=== PATIENT | male | born 1935 | race Caucasian/White ===

== ENCOUNTER 2016-10-06 11:27 | Emergency (ER) | payer MEDICARE, BC ==
[2016-10-06] MEDS ORDERED: Ondansetron 4 MG/2 ML SDV IVPUSH ONE (12:19)
[2016-10-06] MEDS ORDERED: methylPREDNISolone Sodium Succinate 125 MG/2 ML SDV IVPUSH ONE (12:19)
[2016-10-06] MEDS ORDERED: Sodium Chloride 0.9% 10 ML Syringe FLUSH PRN (12:20)
[2016-10-06] MEDS ORDERED: Sodium Chloride 0.9% 1,000 ML IV SCH (12:30)
[2016-10-06] MEDS ORDERED: Meclizine 12.5 MG Tab PO ONE (14:25)
--- NOTE | 2016-10-06 15:12 | EDM.PDOC ---
ED HPI GENERAL MEDICAL PROBLEM - General Chief Complaint: Neurological Problem Stated Complaint: VERTIGO/VOMITING Time Seen by Provider: 10/06/16 11:49 Source of Information: Reports: Patient, Family ( ) - History of Present Illness INITIAL COMMENTS - FREE TEXT/NARRATIVE: 81-year-old male comes in with severe vertigo type dizziness. This started about 2 hours ago. His states that he had been out open tractor in the heat making hay the last couple of days and then he also had an episode of diarrhea last night or early this morning. he states he felt okay this morning until vertigo hit him about 2 hours ago. he's had severe spinning vertigo type dizziness. Is worse with any type of walking or motion, better to lie still. Have an episode of severe vertigo about 4 years ago that eventually resolved over about 2 or 3 day time. No chest pain or difficulty breathing. No abdominal pain. He denies headache or any type of focal weakness - Related Data Allergies Allergy/AdvReac Type Severity Reaction Status Date / Time No Known Allergies Allergy Verified 05/16/15 09:49 Home Meds: Home Meds Ascorbic Acid [Vitamin C] 1,000 mg PO DAILY 05/17/15 [History] Folic Acid [Folic Acid] 1 tab PO DAILY 05/17/15 [History] Methotrexate Sodium [Methotrexate] 8 tab PO WEEKLY 05/17/15 [History] Multivitamin [One Daily Multivitamin] 1 tab PO DAILY 05/17/15 [History] Timolol Maleate [Timoptic 0.5% Ophth Soln] 5 ml EYEBOTH DAILY 05/17/15 [History] Cholecalciferol (Vitamin D3) [Vitamin D3] 1,000 unit PO DAILY 10/06/16 [History] Denosumab [Prolia] 60 mg INJECT Q6M 10/06/16 [History] Prednisone [IJD: Prednisone] 10 mg PO ASDIRECTED 10/06/16 [History] Past Medical History Other Respiratory History: Hx of wheezing with office visit Musculoskeletal History: Reports: RA Social & Family History - Tobacco Use Smoking Status *Q: Former Smoker Used Tobacco, but Quit: Yes Month Tobacco Last Used: 51 Second Hand Smoke Exposure: No - Caffeine Use Caffeine Use: Reports: Coffee - Recreational Drug Use Recreational Drug Use: No Drug Use in Last 12 Months: No ED ROS GENERAL - Review of Systems Review Of Systems: See Below Constitutional: Denies: Fever, Chills HEENT: Reports: Vertigo. Denies: Ear Pain, Eye Discharge, Sinus Problem, Throat Pain, Vision Change Respiratory: Denies: Shortness of Breath Cardiovascular: Denies: Chest Pain GI/Abdominal: Reports: Nausea, Vomiting. Denies: Abdominal Pain, Diarrhea Musculoskeletal: Denies: Neck Pain, Shoulder Pain Skin: Reports: No Symptoms Neurological: Reports: Dizziness. Denies: Numbness, Tingling, Trouble Speaking , Weakness, Change in Speech ED EXAM, DIZZINESS - Physical Exam Exam: See Below General Appearance: Alert, Mild Distress Eye Exam: Bilateral Eye: PERRL Ears: Normal External Exam, Normal Canal, Normal TMs Nose: Normal Inspection Throat/Mouth: Normal Inspection, Normal Oropharynx Head Exam: Atraumatic. No: Facial Swelling Vertigo: reproducible (Worse with motion, better to lie still) Neck: Supple Respiratory/Chest: No Respiratory Distress, Lungs Clear, Normal Breath Sounds Cardiovascular: Regular Rate, Rhythm GI/Abdominal: Soft, Non-Tender. No: Guarding Neurological: Alert, No Motor/Sensory Deficits Back Exam: Normal Inspection Skin Exam: Warm, Dry, Normal Color Course - Vital Signs Last Recorded V/S: Last Vital Signs Temp 97.1 F 10/06/16 12:00 Pulse 71 10/06/16 15:35 Resp 18 10/06/16 15:35 BP 131/81 10/06/16 15:35 Pulse Ox 94 L 10/06/16 15:35 - Orders/Labs/Meds Orders: Active Orders 24 hr Category Date Time Status Peripheral IV Care [RC] . DIRECTED Care 10/06/16 12:20 Active Peripheral IV Insertion Adult [OM.PC] Stat Oth 10/06/16 12:19 Ordered Labs: Laboratory Tests 10/06/16 10/06/16 Range/Units 13:20 13:20 WBC 10.64 H (4.23-9.07) K/mm3 RBC 5.05 (4.63-6.08) M/mm3 Hgb 15.3 (13.7-17.5) gm/L Hct 46.6 (40.1-51.0) % MCV 92.3 H (79.0-92.2) fl MCH 30.3 (25.7-32.2) pg MCHC 32.8 (32.2-35.5) g/dl RDW Std Deviation 49.6 H (35.1-43.9) fL Plt Count 172 (163-337) K/mm3 MPV 9.4 (9.4-12.3) fl Neut % (Auto) 78.8 H (34.0-67.9) % Lymph % (Auto) 11.8 L (21.8-53.1) % [place] % (Auto) 5.9 (5.3-12.2) % Eos % (Auto) 2.9 (0.8-7.0) Baso % (Auto) 0.3 (0.1-1.2) % Neut # (Auto) 8.38 H (1.78-5.38) K/mm3 Lymph # (Auto) 1.26 L (1.32-3.57) K/mm3 [place] # (Auto) 0.63 (0.30-0.82) K/mm3 Eos # (Auto) 0.31 (0.04-0.54) K/mm3 Baso # (Auto) 0.03 (0.01-0.08) K/mm3 Sodium 143 (136-145) mEq/L Potassium 4.2 (3.5-5.1) mEq/L Chloride 105 (98-107) mEq/L Carbon Dioxide 27 (21-32) mEq/L Anion Gap 15.2 H (5-15) BUN 21 H (7-18) mg/dL Creatinine 1.1 (0.7-1.3) mg/dL Est Cr Clr Drug Dosing 61.54 mL/min Estimated GFR (MDRD) > 60 (>60) mL/min BUN/Creatinine Ratio 19.1 H (14-18) Glucose 100 (83-115) mg/dL Calcium 9.5 (8.5-10.1) mg/dL Total Bilirubin 0.5 (0.2-1.0) mg/dL AST 27 (15-37) U/L ALT 25 (16-63) U/L Alkaline Phosphatase 41 L (46-116) U/L Total Protein 7.1 (6.4-8.2) g/dl Albumin 3.7 (3.4-5.0) g/dl Globulin 3.4 gm/dL Albumin/Globulin Ratio 1.1 (1-2) Meds: Medications Discontinued Medications Generic Name Dose Route Start Last Admin Trade Name Opal PRN Reason Stop Dose Admin Diazepam 2 mg 10/06/16 12:20 10/06/16 13:25 Valium IVPUSH 10/06/16 12:21 2 mg ONETIME ONE Administration Sodium Chloride 1,000 mls @ 999 mls/hr 10/06/16 12:30 10/06/16 13:22 Normal Saline IV 999 mls/hr ONETIME DAPHNE Administration Meclizine HCl 12.5 mg 10/06/16 14:25 10/06/16 14:39 Antivert PO 10/06/16 14:26 12.5 mg ONETIME ONE Administration Methylprednisolone Sodium Succinate 125 mg 10/06/16 12:19 10/06/16 13:24 Solu-Medrol IVPUSH 10/06/16 12:20 125 mg ONETIME ONE Administration Ondansetron HCl 4 mg 10/06/16 12:19 10/06/16 13:23 Zofran IVPUSH 10/06/16 12:20 4 mg ONETIME ONE Administration Sodium Chloride 10 ml 10/06/16 12:20 10/06/16 13:28 Saline Flush FLUSH 10 ml ASDIRECTED PRN Administration Keep Vein Open - Re-Assessments/Exams Free Text/Narrative Re-Assessment/Exam: 10/06/16 15:05. Patient has been resting, feels much better after some IV fluid , Zofran 4 mg IV, Solu-Medrol 125 mg IV, Valium 2 mg IV and also Antivert 4.5 mg by mouth. He now is able to tolerate careful movement. Discharge instructions as documented. Departure - Departure Time of Disposition: 15:12 Disposition: Home, Self-Care 01 Clinical Impression: Dehydration Labyrinthitis Qualifiers: Laterality: unspecified laterality Qualified Code(s): H83.09 - Labyrinthitis, unspecified ear - Discharge Information Instructions: Meclizine tablets or capsules, Labyrinthitis Referrals: PCP,None [Primary Care Provider] - Forms: ED Department Discharge Additional Instructions: Rest, moves slowly and carefully, continue Antivert or meclizine 12.5 mg, one half of a 25 mg tablet 2-3 times daily for 2 days or until after dizziness has completely resolved. Drink plenty of water to maintain hydration. Follow-up clinic if not getting back to normal within 2-3 days as expected. Return to ED if symptoms worsening in any way - My Orders Last 24 Hours: My Active Orders 10/06/16 12:19 Peripheral IV Insertion Adult [OM.PC] Stat 10/06/16 12:20 Peripheral IV Care [RC] . DIRECTED - Assessment/Plan Last 24 Hours: My Active Orders 10/06/16 12:19 Peripheral IV Insertion Adult [OM.PC] Stat 10/06/16 12:20 Peripheral IV Care [RC] . DIRECTED
[2016-10-06 15:51] VITALS: BP 131/81
== END 2016-10-06 15:35 | disposition home or self-care (01) ==
LOC: JD.ED 11:27
DX: E86.0 Dehydration (principal); H83.09 Labyrinthitis, unspecified ear; Z79.899 Other long term (current) drug therapy; Z87.891 Personal history of nicotine dependence
CPT/HCPCS: 36415; 80053; 85025; 96361; 96374; 96375; 99284; A9270; J2405; J2930; J3360; J7040; J7050

== ENCOUNTER 2018-12-29 14:10 | Emergency (ER) | payer MEDICARE, BC ==
[2018-12-29 14:22] VITALS: BP 139/72; PULSE 64
[2018-12-29] MEDS ORDERED: Lidocaine 1% 10 ML MDV INJECT ONE (14:29)
--- NOTE | 2018-12-29 16:06 | EDM.PDOC ---
ED HPI GENERAL MEDICAL PROBLEM - General Chief Complaint: Laceration Stated Complaint: L THUMB AND INDEX FINGER LAC Time Seen by Provider: 12/29/18 14:18 Source of Information: Reports: Patient History Limitations: Reports: No Limitations - History of Present Illness INITIAL COMMENTS - FREE TEXT/NARRATIVE: The patient presents with a left index and thumb laceration. He was working with a table saw and he went to shut it off and some how ran his fingers over the saw. He is right handed. His tetanus is up to date. He has 2 lacerations to the pad of the distal left thumb. He has a laceration with tissue missing to the left index finger. Onset: Sudden Duration: Minutes: Location: Reports: Upper Extremity, Left (index and thumb) Quality: Reports: Sharp Severity: Moderate Improves with: Reports: Immobilization Worsens with: Reports: Movement Context: Reports: Trauma (Table saw) Associated Symptoms: Reports: No Other Symptoms Left Hand Pain Score (Numeric/FACES): 7 - Related Data Allergies Allergy/AdvReac Type Severity Reaction Status Date / Time No Known Allergies Allergy Verified 12/29/18 14:22 Home Meds: Home Meds Ascorbic Acid [Vitamin C] 1,000 mg PO DAILY 05/17/15 [History] Folic Acid 1 tab PO DAILY 05/17/15 [History] Methotrexate Sodium [Methotrexate] 8 tab PO WEEKLY 05/17/15 [History] Multivitamin [One Daily Multivitamin] 1 tab PO DAILY 05/17/15 [History] Timolol Maleate [Timoptic 0.5% Ophth Soln] 5 ml EYEBOTH DAILY 05/17/15 [History] Cholecalciferol (Vitamin D3) [Vitamin D3] 1,000 unit PO DAILY 10/06/16 [History] Denosumab [Prolia] 60 mg INJECT Q6M 10/06/16 [History] Prednisone [IJD: Prednisone] 10 mg PO ASDIRECTED 10/06/16 [History] Gabapentin [Neurontin] 0 mg PO DAILY PRN 12/29/18 [History] Past Medical History HEENT History: Reports: Glaucoma, Hard of Hearing, Impaired Vision Other HEENT History: "pressure in the eyes." Cardiovascular History: Reports: None Respiratory History: Reports: None Other Respiratory History: Hx of wheezing with office visit Gastrointestinal History: Reports: GERD Genitourinary History: Reports: None Musculoskeletal History: Reports: Fracture, RA Other Musculoskeletal History: Delfin in left arm. Neurological History: Reports: Vertigo Psychiatric History: Reports: None Endocrine/Metabolic History: Reports: None Hematologic History: Reports: None Immunologic History: Reports: None Oncologic (Cancer) History: Reports: None Dermatologic History: Reports: None - Infectious Disease History Infectious Disease History: Reports: None - Past Surgical History Head Surgeries/Procedures: Reports: None Social & Family History - Tobacco Use Smoking Status *Q: Never Smoker - Caffeine Use Caffeine Use: Reports: Coffee - Recreational Drug Use Recreational Drug Use: No ED ROS GENERAL - Review of Systems Review Of Systems: See Below Constitutional: Reports: No Symptoms HEENT: Reports: No Symptoms Respiratory: Reports: No Symptoms Cardiovascular: Reports: No Symptoms Endocrine: Reports: No Symptoms GI/Abdominal: Reports: No Symptoms : Reports: No Symptoms Musculoskeletal: Reports: Other (Lacerations to the left thumb and index finger) ED EXAM, SKIN/RASH Exam: See Below Exam Limited By: No Limitations General Appearance: Alert, No Apparent Distress Ears: Normal External Exam Nose: Normal Inspection Head: Atraumatic, Normocephalic Neck: Normal Inspection Respiratory/Chest: No Respiratory Distress Extremities: Other (Two 1 cm laceration to the pad of the left thumb. The left index finger has a 1.5cm laceration with tissue missing.) ED SKIN PROCEDURES - Laceration/Wound Repair Left Digit - 1st (Thumb) Appearance: Subcutaneous, Linear Distal NVT: Neuro & Vascular Intact, No Tendon Injury Anesthetic Type: Local Local Anesthesia - Lidocaine (Xylocaine): 1% Plain Skin Prep: Saline Exploration/Debridement/Repair: Wound Explored, In a Bloodless Field, Explored to Base Closed with: Sutures Lac/Wound length In cm: 2 Suture Size: 4-0 # of Sutures: 5 Suture Type: Nylon, Interrupted, Simple Tetanus Status Addressed: Yes Complications: No Course - Vital Signs Last Recorded V/S: Last Vital Signs Temp 97.2 F 12/29/18 14:18 Pulse 64 12/29/18 14:18 Resp 16 12/29/18 14:18 BP 139/72 12/29/18 14:18 Pulse Ox 99 12/29/18 14:18 - Orders/Labs/Meds Orders: Active Orders 24 hr Category Date Time Status Hand 2V Lt [CR] Stat Exams 12/29/18 14:29 Taken Meds: Medications Discontinued Medications Generic Name Dose Route Start Last Admin Trade Name Opal PRN Reason Stop Dose Admin Lidocaine HCl 10 ml 12/29/18 14:29 12/29/18 15:12 Xylocaine 1% INJECT 12/29/18 14:30 10 ml ONETIME ONE Administration - Re-Assessments/Exams Free Text/Narrative Re-Assessment/Exam: 12/29/18 16:09 I ordered an x-ray and there is no fracture. Departure - Departure Time of Disposition: 16:15 Disposition: Home, Self-Care 01 Condition: Good Clinical Impression: Laceration - Discharge Information *PRESCRIPTION DRUG MONITORING PROGRAM REVIEWED*: No *COPY OF PRESCRIPTION DRUG MONITORING REPORT IN PATIENT KELSEY: No Referrals: Prosper Carpio Jr, MD [Primary Care Provider] - 1 Week Additional Instructions: Soak your finger in warm soapy water two times per day and apply antibiotics after. Have the sutures removed in a week. Look for any signs of infection such as redness, swelling, pain or swelling. If you see any of these signs, please return or see your doctor. You may need antibiotics. - My Orders Last 24 Hours: My Active Orders 12/29/18 14:29 Hand 2V Lt [CR] Stat - Assessment/Plan Last 24 Hours: My Active Orders 12/29/18 14:29 Hand 2V Lt [CR] Stat ED LACERATION/WOUND PROCEDURES - Laceration/Wound Repair Left Digit - 2nd (Index) Laceration/Wound Length In cm: 1.5 Appearance: Subcutaneous, Other (tissue missing) Distal NVT: Neuro & Vascular Intact, No Tendon Injury Anesthetic Type: Local Local Anesthesia - Lidocaine (Xylocaine): 1% Plain Local Anesthetic Volume: 2cc Skin Prep: Saline Wound Exploration, Debridement, Revision: Wound Explored, In a Bloodless Field, Explored to Base Suture Size: 4-0 # of Sutures: 1 Suture Type: Nylon, Interrupted, Simple Tetanus Status Addressed: Yes Complications: None
--- NOTE | 2018-12-30 07:06 | CR ---
Left hand: Two views of the left hand were obtained. Comparison: No previous study. Deformity of the ulnar styloid process is seen most likely representing change from old injury. Mild joint space narrowing is scattered within the DIP joints. No acute fracture or other abnormality is seen. Soft tissue injury is seen within the distal second finger. Impression: 1. No acute bony abnormality. 2. Soft tissue injury. Diagnostic code #3
== END 2018-12-29 16:20 | disposition home or self-care (01) ==
LOC: JD.ED 14:10
DX: S61.012A Laceration without foreign body of left thumb without damage to nail, initial encounter (principal); S61.211A Laceration without foreign body of left index finger without damage to nail, initial encounter
CPT/HCPCS: 12001; 73120; 99283; J2001; 12042; 99282

== ENCOUNTER 2021-10-27 11:43 | Emergency (ER) | payer MEDICARE, BC ==
[2021-10-27] MEDS ORDERED: Acetaminophen 325 MG Tab PO ONE (12:34)
[2021-10-27 14:16] VITALS: BP 114/70; PULSE 65
== END 2021-10-27 14:05 | disposition home or self-care (01) ==
LOC: JD.ED 11:43
DX: R07.81 Pleurodynia (principal); K21.9 Gastro-esophageal reflux disease without esophagitis
CPT/HCPCS: 71101; 99283; A9270

== ENCOUNTER 2022-01-18 16:41 | Emergency (ER) | payer MEDICARE, BC ==
[2022-01-18 18:18] VITALS: BP 99/65; PULSE 81
[2022-01-18] MEDS ORDERED: Sodium Chloride 0.9% 1,000 ML IV ONE (22:21)
[2022-01-18 22:30] LABS: CORONAVIRUS COVID-19 NAA NEGATIVE (NEGATIVE)
[2022-01-18] MEDS ORDERED: Iopamidol 755 Mg/ML 100 ML Bottle IVPUSH ONE (22:54)
[2022-01-19] MEDS ORDERED: Azithromycin 250 MG Tab PO STA (00:35)
== END 2022-01-19 01:15 | disposition home or self-care (01) ==
LOC: JD.ED 16:41
DX: E86.9 Volume depletion, unspecified (principal); R91.8 Other nonspecific abnormal finding of lung field; Z79.899 Other long term (current) drug therapy; Z88.1 Allergy status to other antibiotic agents; Z86.16 Personal history of COVID-19; Z87.891 Personal history of nicotine dependence; Z20.822 Contact with and (suspected) exposure to COVID-19
CPT/HCPCS: 0241U; 36415; 71046; 71275; 80053; 81001; 83605; 83735; 84443; 84484; 85025; 85379; 86140; 87040; 93005; 96360; 99285; A9270; J7030; Q9967

== ENCOUNTER 2022-06-03 11:55 | Emergency (ER) | payer MEDICARE, BC ==
[2022-06-03 12:12] VITALS: PULSE 69
[2022-06-03] MEDS ORDERED: Sodium Chloride 0.9% 10 ML Syringe FLUSH PRN (13:09)
[2022-06-03] MEDS ORDERED: HYDROmorphone 0.5 MG/0.5 ML Syringe IVPUSH ONE (17:31)
[2022-06-03 18:13] LABS: CORONAVIRUS COVID-19 NAA POSITIVE (NEGATIVE)
[2022-06-03 19:48] VITALS: BP 102/53
== END 2022-06-03 19:40 ==
LOC: JD.ED 11:55
DX: U07.1 COVID-19 (principal); R00.1 Bradycardia, unspecified; S00.81XA Abrasion of other part of head, initial encounter; Z88.1 Allergy status to other antibiotic agents; W18.30XA Fall on same level, unspecified, initial encounter
CPT/HCPCS: 0241U; 36415; 70450; 71045; 80053; 81001; 83735; 84484; 85025; 86140; 93005; 96374; 99285; J1170; J3490; 93010

== ENCOUNTER 2023-07-29 10:32 | Emergency (ER) | payer MEDICARE, BC ==
[2023-07-29] MEDS: Sodium Chloride 0.9% 10 ML Syringe FLUSH PRN (10:55)
[2023-07-29 12:01] LABS: BASOPHILS PERCENT AUTO 0.4 % (0.0-1.0); EOSINOPHILS PERCENT AUTO 0.2 % (0.0-6.0); HEMATOCRIT 45.9 % (42.0-52.0); HEMOGLOBIN 14.5 gm/dl (14.0-18.0); IMMATURE GRAN ABSOLUTE AUTO 0.05 K/mm3 (0.00-0.05); IMMATURE GRAN PERCENT AUTO 0.6 % (0.0-0.4); LYMPHOCYTES ABSOLUTE AUTO 1.7 K/mm3 (1.0-4.8); LYMPHOCYTES PERCENT AUTO 19.4 % (24.0-44.0); MEAN CORPUSCULAR HEMOGLOBIN 30.5 pg (28.0-32.0); MEAN CORPUSCULAR HGB CONC 31.6 g/dl (32.0-36.0); MEAN CORPUSCULAR VOLUME 96.4 fl (83.0-99.0); MONOCYTES ABSOLUTE AUTO 0.9 K/mm3 (0.0-0.8); MONOCYTES PERCENT AUTO 10.2 % (0.0-8.0); NEUTROPHILS ABSOLUTE AUTO 5.9 K/mm3 (1.8-7.7); NEUTROPHILS PERCENT AUTO 69.2 % (41.0-71.0); NRBC ABSOLUTE 0.06 (0.00-0.02); NRBC PERCENT 0.7 % (0.0-0.2); PLATELET COUNT,PLT 106 K/mm3 (150-400); RED BLOOD CELL COUNT 4.76 M/mm3 (4.52-5.90); WHITE BLOOD CELL COUNT,WBC 8.57 K/mm3 (3.9-11.3)
[2023-07-29 12:20] LABS: A/G RATIO 0.9 (1-2); ALBUMIN 3.1 g/dl (3.4-5.0); ANION GAP 16.4 (5-15); BILIRUBIN TOTAL 3.3 mg/dL (0.2-1.0); BUN/CREATININE RATIO 16.5 (14-18); C-REACTIVE PROTEIN 3.5 mg/dL (<0.30); EST CRCL DRUG DOSING (CG) 29.1 mL/min; POTASSIUM,K 4.4 mEq/L (3.5-5.1); PROTEIN TOTAL,TP 6.5 g/dl (6.4-8.2)
[2023-07-29] MEDS: Sodium Chloride 0.9% 1,000 ML IV SCH (12:45)
[2023-07-29] MEDS: Codeine/Promethazine 10-6.25 MG/5 ML Syrup 5 ML UD Cup PO ONE (12:46)
[2023-07-29] MEDS: Furosemide 100 MG/10 ML SDV IVPUSH ONE (13:50)
[2023-07-29 14:13] LABS: CORONAVIRUS COVID-19 NAA NEGATIVE (NEGATIVE); INFLUENZA A NAA NEGATIVE (NEGATIVE); RESPIRATORY SYNCYTIAL VIR NAA NEGATIVE (NEGATIVE)
[2023-07-29 17:44] VITALS: BP 102/47; PULSE 71
== END 2023-07-29 17:25 ==
LOC: JD.ED 10:32
DX: J90 Pleural effusion, not elsewhere classified (principal); I50.9 Heart failure, unspecified; N28.9 Disorder of kidney and ureter, unspecified; Z88.1 Allergy status to other antibiotic agents; Z79.01 Long term (current) use of anticoagulants; Z79.899 Other long term (current) drug therapy; Z86.16 Personal history of COVID-19
CPT/HCPCS: 0241U; 36415; 71046; 80053; 83880; 84484; 85025; 86140; 93005; 96361; 96374; 99285; A9270; J1940; J3490; J7030; 93010

== ENCOUNTER 2023-08-27 17:32 | Inpatient (IN) | payer MEDICARE, BC ==
[2023-08-27 19:45] LABS: BASOPHILS PERCENT AUTO 0.4 % (0.0-1.0); EOSINOPHILS PERCENT AUTO 0.8 % (0.0-6.0); HEMATOCRIT 44.5 % (42.0-52.0); HEMOGLOBIN 14.9 gm/dl (14.0-18.0); IMMATURE GRAN ABSOLUTE AUTO 0.06 K/mm3 (0.00-0.05); IMMATURE GRAN PERCENT AUTO 1.2 % (0.0-0.4); LYMPHOCYTES PERCENT AUTO 18.8 % (24.0-44.0); MEAN CORPUSCULAR HEMOGLOBIN 30.7 pg (28.0-32.0); MEAN CORPUSCULAR HGB CONC 33.5 g/dl (32.0-36.0); MEAN CORPUSCULAR VOLUME 91.8 fl (83.0-99.0); MEAN PLATELET VOLUME 11.4 fl (9.4-12.4); MONOCYTES ABSOLUTE AUTO 0.2 K/mm3 (0.0-0.8); MONOCYTES PERCENT AUTO 4.7 % (0.0-8.0); NEUTROPHILS ABSOLUTE AUTO 3.8 K/mm3 (1.8-7.7); NEUTROPHILS PERCENT AUTO 74.1 % (41.0-71.0); NRBC ABSOLUTE 0.11 (0.00-0.02); NRBC PERCENT 2.2 % (0.0-0.2); PLATELET COUNT,PLT 84 K/mm3 (150-400); RED BLOOD CELL COUNT 4.85 M/mm3 (4.52-5.90); WHITE BLOOD CELL COUNT,WBC 5.11 K/mm3 (3.9-11.3)
[2023-08-27 20:06] LABS: A/G RATIO 0.8 (1-2); ALANINE AMINOTRANSFERASE,ALT 124 U/L (16-63); ALBUMIN 2.8 g/dl (3.4-5.0); ALKALINE PHOSPHATASE 142 U/L (46-116); ANION GAP 12.4 (5-15); ASPARTATE AMNIOTRANSFERASE,AST 464 U/L (15-37); BILIRUBIN TOTAL 3.5 mg/dL (0.2-1.0); BLOOD UREA NITROGEN,BUN 30 mg/dL (7-18); BUN/CREATININE RATIO 21.4 (14-18); CALCIUM 8.2 mg/dL (8.5-10.1); CARBON DIOXIDE,CO2 30 mEq/L (21-32); CHLORIDE,CL 98 mEq/L (98-107); CREATININE 1.4 mg/dL (0.7-1.3); ESTIMATED GFR 49 mL/min (>60); GLUCOSE RANDOM 86 mg/dL (70-99); LIPASE 19 U/L (16-77); MAGNESIUM 1.2 mg/dL (1.8-2.4); POTASSIUM,K 3.4 mEq/L (3.5-5.1); PROTEIN TOTAL,TP 6.2 g/dl (6.4-8.2); SODIUM,NA 137 mEq/L (136-145)
[2023-08-27 20:07] LABS: INR 1.94; PROTHROMBIN TIME 19.8 SECONDS (9.7-12.0)
[2023-08-27 20:17] LABS: TROPONIN I HIGH SENSITIVITY 226 pg/mL (<=76)
[2023-08-27 20:32] LABS: SLIDE REVIEW ABNORMAL SMEAR
[2023-08-27] MEDS: Magnesium Sulfate/Water 2 GM in Premix Bag 1 BAG IV ONE (21:04)
[2023-08-27] MEDS: Sodium Chloride 0.9% 10 ML Syringe FLUSH PRN (21:07)
[2023-08-27 21:34] LABS: APPEARANCE,URINE CLEAR (Clear); BILIRUBIN,URINE NEGATIVE (Negative); COLOR,URINE YELLOW (Yellow); GLUCOSE,URINE NEGATIVE (Negative); KETONES,URINE NEGATIVE (Negative); LEUKOCYTE ESTERASE,URINE NEGATIVE (Negative); NITRITE,URINE NEGATIVE (Negative); OCCULT BLOOD,URINE 2+ (Negative); PROTEIN,URINE TRACE (Negative); UROBILINOGEN,URINE 0.2 (0.2-1.0)
[2023-08-27 21:45] LABS: BACTERIA,URINE RARE /hpf (FEW); EPITHELIAL CELLS,URINE 0-5 /hpf (0-5); HYALINE CASTS,URINE 30-40 /lpf (0-5); MUCUS,URINE RARE /hpf (FEW); WBC,URINE 0-5 /hpf (0-5)
[2023-08-27] MEDS: oxyCODONE 5 MG Tab PO PRN (23:03)
[2023-08-27] MEDS: Furosemide 40 MG/4 ML VIAL IVPUSH ONE (23:09)
[2023-08-28] MEDS ORDERED: Ondansetron 4 MG/2 ML SDV IV PRN (09:07)
[2023-08-28] MEDS ORDERED: Acetaminophen 325 MG Tab PO PRN (09:07)
[2023-08-28] MEDS ORDERED: Polyethylene Glycol 3350 Powder 17 GM Packet PO PRN (09:07)
[2023-08-28] MEDS ORDERED: Docusate Sodium 100 MG Cap PO PRN (09:07)
[2023-08-28 09:41] LABS: A/G RATIO 0.8 (1-2); ALBUMIN 2.7 g/dl (3.4-5.0); ANION GAP 13.7 (5-15); BILIRUBIN TOTAL 3.6 mg/dL (0.2-1.0); C-REACTIVE PROTEIN 7.64 mg/dL (<0.30); CALCIUM 8.2 mg/dL (8.5-10.1); CREATININE 1.3 mg/dL (0.7-1.3); EST CRCL DRUG DOSING (CG) 46.1 mL/min; MAGNESIUM 1.4 mg/dL (1.8-2.4); POTASSIUM,K 3.7 mEq/L (3.5-5.1); PROTEIN TOTAL,TP 6.1 g/dl (6.4-8.2)
[2023-08-28] MEDS: Timolol Maleate 0.5% Ophth Soln 5 ML Bottle EYEBOTH SCH (09:56)
[2023-08-28] MEDS: Colchicine 0.6 MG Tab PO SCH (09:57)
[2023-08-28] MEDS: Apixaban 5 MG Tab PO SCH (09:57)
[2023-08-28] MEDS: Folic Acid 1 MG Tab PO SCH (09:57)
[2023-08-28] MEDS: Pantoprazole 40 MG Tab.CR PO SCH (09:57)
[2023-08-28] MEDS: Brimonidine 0.2% Ophth Soln 5 ML Bottle EYEBOTH SCH (09:57)
[2023-08-28] MEDS: Fluticasone NASAL Spray 16 GM Bottle NASBOTH SCH (09:57)
[2023-08-28] MEDS: Midodrine 5 MG Tab PO SCH (09:58)
[2023-08-28] MEDS: Magnesium Sulfate/Water 4 GM in Premix Bag 1 BAG IV ONE (10:43)
[2023-08-28 12:11] LABS: BASE EXCESS ARTERIAL 2.3 (-2-2.0); O2 SATURATION ARTERIAL 97.4 % (96.0-97.0); PCO2 ARTERIAL 49.9 mmHg (35.0-45.0)
[2023-08-28] MEDS: prednisoLONE Acetate 1% Ophth Susp 5 ML Bottle EYERT SCH (12:34)
[2023-08-28 16:01] LABS: HEPATITIS C AB NON-REACTIVE (Non-React)
[2023-08-28 16:48] LABS: TSH 14.092 uIU/mL (0.358-3.74)
[2023-08-28 17:05] LABS: T4 FREE 0.78 ng/dL (0.76-1.46)
[2023-08-28 18:00] LABS: APPEARANCE,URINE CLEAR (Clear); BILIRUBIN,URINE 1+ (Negative); COLOR,URINE YELLOW (Yellow); GLUCOSE,URINE NEGATIVE (Negative); KETONES,URINE NEGATIVE (Negative); LEUKOCYTE ESTERASE,URINE NEGATIVE (Negative); NITRITE,URINE NEGATIVE (Negative); OCCULT BLOOD,URINE 2+ (Negative); PH,URINE 5.5 (5.0-8.0); PROTEIN,URINE 1+ (Negative); UROBILINOGEN,URINE 0.2 (0.2-1.0)
[2023-08-28 18:34] LABS: BACTERIA,URINE MANY /hpf (FEW); EPITHELIAL CELLS,URINE NOT SEEN /hpf (0-5); HYALINE CASTS,URINE 40-50 /lpf (0-5); RBC,URINE 0-5 /hpf (0-5)
[2023-08-28 18:35] LABS: MUCUS,URINE NOT SEEN /hpf (FEW)
[2023-08-28] MEDS ORDERED: Mirtazapine 15 MG Tab PO SCH (21:00)
[2023-08-28] MEDS ORDERED: Gabapentin 600 MG Tab PO SCH (21:00)
[2023-08-28] MEDS: traMADol 50 MG Tab PO PRN (21:50)
[2023-08-29] MEDS: Latanoprost 0.005% Ophth Soln 2.5 ML Bottle EYERT SCH (00:25)
[2023-08-29 05:08] LABS: BASOPHILS PERCENT AUTO 0.4 % (0.0-1.0); EOSINOPHILS PERCENT AUTO 0.4 % (0.0-6.0); HEMATOCRIT 41.4 % (42.0-52.0); HEMOGLOBIN 13.8 gm/dl (14.0-18.0); IMMATURE GRAN ABSOLUTE AUTO 0.07 K/mm3 (0.00-0.05); IMMATURE GRAN PERCENT AUTO 1.5 % (0.0-0.4); LYMPHOCYTES ABSOLUTE AUTO 0.8 K/mm3 (1.0-4.8); LYMPHOCYTES PERCENT AUTO 17.4 % (24.0-44.0); MEAN CORPUSCULAR HEMOGLOBIN 29.4 pg (28.0-32.0); MEAN CORPUSCULAR HGB CONC 33.3 g/dl (32.0-36.0); MEAN CORPUSCULAR VOLUME 88.1 fl (83.0-99.0); MONOCYTES ABSOLUTE AUTO 0.2 K/mm3 (0.0-0.8); MONOCYTES PERCENT AUTO 4.3 % (0.0-8.0); NEUTROPHILS ABSOLUTE AUTO 3.5 K/mm3 (1.8-7.7); NRBC ABSOLUTE 0.12 (0.00-0.02); NRBC PERCENT 2.6 % (0.0-0.2); PLATELET COUNT,PLT 68 K/mm3 (150-400); WHITE BLOOD CELL COUNT,WBC 4.65 K/mm3 (3.9-11.3)
[2023-08-29 05:52] LABS: A/G RATIO 0.7 (1-2); ALBUMIN 2.4 g/dl (3.4-5.0); ANION GAP 19.4 (5-15); BILIRUBIN TOTAL 4.3 mg/dL (0.2-1.0); BUN/CREATININE RATIO 23.3 (14-18); C-REACTIVE PROTEIN 7.49 mg/dL (<0.30); CALCIUM 7.9 mg/dL (8.5-10.1); CREATININE 1.2 mg/dL (0.7-1.3); EST CRCL DRUG DOSING (CG) 49.94 mL/min; MAGNESIUM 2.1 mg/dL (1.8-2.4); PROTEIN TOTAL,TP 5.7 g/dl (6.4-8.2)
[2023-08-29 06:10] LABS: POTASSIUM,K 3.4 mEq/L (3.5-5.1)
[2023-08-29 06:35] LABS: SLIDE REVIEW ABNORMAL SMEAR
[2023-08-29] MEDS: Torsemide 20 MG Tab PO SCH (08:30)
[2023-08-29] MEDS: Potassium Chloride 10 MEQ in Premix Bag 1 BAG IV SCH (08:35)
[2023-08-29] MEDS ORDERED: Gabapentin 300 MG Cap PO SCH (09:00)
[2023-08-29 14:49] VITALS: BP 93/48; PULSE 84
[2023-08-29] MEDS: traMADol 50 MG Tab PO ONE (15:06)
[2023-08-30] MEDS ORDERED: Levothyroxine 112 MCG Tab PO SCH (06:00)
[2023-08-30 12:42] LABS: HAV AB IGM Negative (Negative)
[2023-08-30 14:47] LABS: HBC IGM Negative (Negative)
[2023-08-30 14:47] LABS: HEP B SURFACE AG Negative (Negative)
[2023-08-31 04:42] LABS: LIV,KID MIC1AB,IGG 0.7 U (0.0-24.9)
[2023-09-02 04:46] LABS: SMOOTH MUSC AB, IGG 53 Units (0-19)
== END 2023-08-29 16:00 | disposition home or self-care (01) | DRG 186 ==
LOC: JD.ED 17:32 → JD.ICU 22:29
PROVIDERS: ADMIT Internal Medicine; ATTEND Internal Medicine
DX: J90 Pleural effusion, not elsewhere classified (principal); K65.8 Other peritonitis; I31.39 Other pericardial effusion (noninflammatory); I50.32 Chronic diastolic (congestive) heart failure; I11.0 Hypertensive heart disease with heart failure; K21.9 Gastro-esophageal reflux disease without esophagitis; G47.33 Obstructive sleep apnea (adult) (pediatric); H40.9 Unspecified glaucoma; I48.0 Paroxysmal atrial fibrillation; E78.5 Hyperlipidemia, unspecified; M05.79 Rheumatoid arthritis with rheumatoid factor of multiple sites without organ or systems involvement; R79.89 Other specified abnormal findings of blood chemistry; N28.9 Disorder of kidney and ureter, unspecified; E83.42 Hypomagnesemia; R09.02 Hypoxemia; R40.0 Somnolence; Z88.1 Allergy status to other antibiotic agents; Z95.0 Presence of cardiac pacemaker; Z85.820 Personal history of malignant melanoma of skin; Z79.01 Long term (current) use of anticoagulants; Z86.16 Personal history of COVID-19; Z90.89 Acquired absence of other organs
CPT/HCPCS: 36415; 36600; 51701; 70450; 70450-26; 71045; 71045-26; 74176; 74176-26; 80053; 81001; 82140; 82803; 82947; 82977; 83690; 83735; 83880; 84439; 84443; 84484; 85025; 85610; 86015; 86140; 86376; 86705; 86709; 86803; 87340; 93005; 93307; A9270-GY; C1758; J1940; J3475; J3480; J3490